=== PATIENT | female | born 1995 | race Hispanic/Latino ===

== ENCOUNTER 2020-01-16 00:54 | Emergency (ER) | payer OTHER | END 2020-01-16 03:38 | LOC: EDH 00:54 | DX: S39.012A Strain of muscle, fascia and tendon of lower back, initial encounter (principal); S16.1XXA Strain of muscle, fascia and tendon at neck level, initial encounter; S80.02XA Contusion of left knee, initial encounter; S50.311A Abrasion of right elbow, initial encounter; S60.811A Abrasion of right wrist, initial encounter; V49.49XA Driver injured in collision with other motor vehicles in traffic accident, initial encounter; Y93.89 Activity, other specified; Y92.89 Other specified places as the place of occurrence of the external cause; Y99.8 Other external cause status | CPT/HCPCS: 31500; 70450; 72125; 72131; 72170; 73070; 73110; 73562; 81025; 92950 ==

== ENCOUNTER 2020-01-24 14:09 | Emergency (ER) | payer OTHER ==
[2020-01-24 15:12] LABS: APPEARANCE,URINE Clear (CLEAR); BILIRUBIN,URINE Negative (NEGATIVE); COLOR,URINE Yellow (YELLOW); GLUCOSE, URINE (UA) Negative (NEGATIVE); KETONES,URINE Negative (NEGATIVE); LEUKOCYTE ESTERASE ,URINE Negative (NEGATIVE); NITRATE,URINE Negative (NEGATIVE); OCCULT BLOOD,URINE Nonhemolyzed Trace (NEGATIVE); PROTEIN,URINE Negative (NEGATIVE)
[2020-01-24 15:23] LABS: HCG,QUAL RESULT NEGATIVE (NEGATIVE)
[2020-01-24 15:27] LABS: BACTERIA,URINE Few /HPF (None Seen); MUCUS,URINE Few LPF (None Seen); SQUAMOUS EPITHELIAL CELL,UR Few /HPF (0-2); WBC,URINE 0-1 /HPF (0-1)
[2020-01-24] MEDS ORDERED: KETOROLAC TROMETHAMINE 30MG/ML ONE (15:27)
[2020-01-24] MEDS ORDERED: CYCLOBENZAPRINE HCL 10 MG TABLET ONE (15:57)
== END 2020-01-24 16:27 | disposition home or self-care (01) ==
LOC: EDH 14:09
DX: F07.81 Postconcussional syndrome (principal); M62.838 Other muscle spasm
CPT/HCPCS: 71101; 81001; 81025; 96372; 99284; J1885